=== PATIENT | male | born 1995 | race Caucasian/White ===

== ENCOUNTER 2018-11-17 13:50 | Emergency (ER) | payer SELFPAY ==
[2018-11-17] MEDS ORDERED: Ondansetron 4 MG/2 ML SDV IVPUSH ONE (14:39)
[2018-11-17] MEDS ORDERED: Ketorolac 30 MG/ML SDV IVPUSH ONE (14:39)
[2018-11-17] MEDS ORDERED: Sodium Chloride 0.9% 1,000 ML IV ONE (14:39)
--- NOTE | 2018-11-17 14:56 | EDM.PDOC ---
ED HPI GENERAL MEDICAL PROBLEM - General Chief Complaint: Fever Stated Complaint: SICK Time Seen by Provider: 11/17/18 14:29 Source of Information: Reports: Patient History Limitations: Reports: No Limitations - History of Present Illness INITIAL COMMENTS - FREE TEXT/NARRATIVE: Presents 24-48 hour history of vomiting 4, diarrhea many times, body aches, chills fever and sore throat. Denies abdominal pain or cough. He did not have a flu shot. He is otherwise healthy without chronic medical problems. Back Pain Score (Numeric/FACES): 8 - Related Data Allergies Allergy/AdvReac Type Severity Reaction Status Date / Time No Known Allergies Allergy Verified 11/17/18 14:24 Home Meds: Home Meds Amoxicillin [Amoxil 400 MG/5 ML Susp] 7 ml PO Q12HR 10 Days #100 ml 11/17/18 [Rx ] Cyclobenzaprine [Flexeril] 1 tab PO TID PRN #20 tab 11/17/18 [Rx] Past Medical History - Past Health History Medical/Surgical History: Denies Medical/Surgical History - Infectious Disease History Infectious Disease History: Reports: Chicken Pox Social & Family History - Family History Family Medical History: Noncontributory - Tobacco Use Smoking Status *Q: Never Smoker - Recreational Drug Use Recreational Drug Use: No ED ROS ENT - Review of Systems Review Of Systems: See Below Musculoskeletal: Reports: Back Pain (Long history of back pain but the patient states that a much worse back pain is what really brought him in today) ED EXAM, ENT - Physical Exam Exam: See Below Exam Limited By: No Limitations General Appearance: Alert, No Apparent Distress Ears: Normal External Exam, Normal TMs Nose: Normal Inspection Mouth/Throat: Pharyngeal Erythema, Throat Swelling Head: Atraumatic, Normocephalic Neck: Normal Inspection, Lymphadenopathy (L), Lymphadenopathy (R) Respiratory/Chest: No Respiratory Distress, Lungs Clear, Normal Breath Sounds Cardiovascular: Normal Peripheral Pulses, Regular Rate, Rhythm, No Murmur, Tachycardia GI/Abdominal: Soft Back: Paraspinal Tenderness (Lower thoracic and lumbar), Vertebral Tenderness ( Lower thoracic and lumbar). No: CVA Tenderness (L), CVA Tenderness (R) Extremities: Normal Inspection Neurological: Alert, Oriented, Normal Cognition, No Motor/Sensory Deficits Psychiatric: Normal Affect, Normal Mood Skin: Warm, Dry, Intact, Normal Color, No Rash Lymphatic: No Adenopathy Course - Vital Signs Last Recorded V/S: Last Vital Signs Temp 37.3 C 11/17/18 14:22 Pulse 114 H 11/17/18 14:22 Resp 18 11/17/18 14:22 BP 127/81 11/17/18 14:22 Pulse Ox 95 11/17/18 14:22 - Orders/Labs/Meds Orders: Active Orders 24 hr Category Date Time Status Lumbar Spine 2 or 3V [CR] Stat Exams 11/17/18 16:05 Ordered Labs: Laboratory Tests 11/17/18 Range/Units 14:58 WBC 13.03 H (4.0-11.0) K/uL RBC 5.36 (4.50-5.90) M/uL Hgb 15.9 (13.0-17.0) g/dL Hct 44.0 (38.0-50.0) % MCV 82.1 (80.0-98.0) fL MCH 29.7 (27.0-32.0) pg MCHC 36.1 (31.0-37.0) g/dL RDW Std Deviation 37.1 (28.0-62.0) fl RDW Coeff of Yasmin 13 (11.0-15.0) % Plt Count 199 (150-400) K/uL MPV 10.20 (7.40-12.00) fL Neut % (Auto) 76.8 (48.0-80.0) % Lymph % (Auto) 10.8 L (16.0-40.0) % Runnels % (Auto) 12.0 (0.0-15.0) % Eos % (Auto) 0.2 (0.0-7.0) % Baso % (Auto) 0.2 (0.0-1.5) % Neut # (Auto) 10.0 H (1.4-5.7) K/uL Lymph # (Auto) 1.4 (0.6-2.4) K/uL Runnels # (Auto) 1.6 H (0.0-0.8) K/uL Eos # (Auto) 0.0 (0.0-0.7) K/uL Baso # (Auto) 0.0 (0.0-0.1) K/uL Nucleated RBC % 0.0 /100WBC Nucleated RBCs # 0 K/uL Meds: Medications Discontinued Medications Generic Name Dose Route Start Last Admin Trade Name Anh PRN Reason Stop Dose Admin Cyclobenzaprine HCl 10 mg 11/17/18 16:07 11/17/18 16:19 Flexeril PO 11/17/18 16:08 10 mg ONETIME ONE Administration Fentanyl 50 mcg 11/17/18 16:07 11/17/18 16:20 Sublimaze IVPUSH 11/17/18 16:08 50 mcg ONETIME ONE Administration Sodium Chloride 1,000 mls @ 999 mls/hr 11/17/18 14:39 11/17/18 15:07 Normal Saline IV 11/17/18 15:39 999 mls/hr STAT ONE Administration Ceftriaxone Sodium/Dextrose 1 50 mls @ 100 mls/hr 11/17/18 15:33 11/17/18 16: 03 gm/ Premix IV 11/17/18 16:02 100 mls/hr ONETIME ONE Administration Ketorolac Tromethamine 30 mg 11/17/18 14:39 11/17/18 15:07 Toradol IVPUSH 11/17/18 14:40 30 mg ONETIME ONE Administration Ondansetron HCl 4 mg 11/17/18 14:39 11/17/18 15:07 Zofran IVPUSH 11/17/18 14:40 4 mg ONETIME ONE Administration Departure - Departure Time of Disposition: 15:46 Disposition: Home, Self-Care 01 Condition: Good Clinical Impression: Strep pharyngitis - Discharge Information *PRESCRIPTION DRUG MONITORING PROGRAM REVIEWED*: Not Applicable *COPY OF PRESCRIPTION DRUG MONITORING REPORT IN PATIENT ODIN: Not Applicable Prescriptions: Amoxicillin [Amoxil 400 MG/5 ML Susp] 7 ml PO Q12HR 10 Days #100 ml Referrals: PCP,Unknown [Primary Care Provider] - Forms: ED Department Discharge Additional Instructions: 1. Take your antibiotic twice daily 2. Flexeril 3 times daily as needed for back spasm 3. Adjust mouthwash gargle and swallow every 4 hours as needed for sore throat 4. Warm saltwater gargles every 2 hours as needed for sore throat 5. Follow-up in primary care 6. Drink large amounts of clear cool fluids and rest - My Orders Last 24 Hours: My Active Orders 11/17/18 16:05 Lumbar Spine 2 or 3V [CR] Stat - Assessment/Plan Last 24 Hours: My Active Orders 11/17/18 16:05 Lumbar Spine 2 or 3V [CR] Stat
[2018-11-17] MEDS ORDERED: cefTRIAXone 1 GM in Premix Bag 1 BAG IV ONE (15:33)
[2018-11-17] MEDS ORDERED: Cyclobenzaprine 10 MG Tab PO ONE (16:07)
[2018-11-17] MEDS ORDERED: fentaNYL 100 MCG/2 ML SDV IVPUSH ONE (16:07)
--- NOTE | 2018-11-17 17:29 | CR ---
INDICATION: back pain from laying in bed for a few days, no injury TECHNIQUE: Lumbar spine 3 views. COMPARISON: None. FINDINGS: Bones: Alignment is normal. No fractures or bone lesions. Joint spaces: Disc spaces are normal. Facet joints are normal. Soft tissues: Negative. IMPRESSION: Negative lumbar spine. Dictated by: Rigoberto Hernandez MD @ 11/17/2018 17:28:39 (Electronically Signed)
== END 2018-11-17 17:58 | disposition home or self-care (01) ==
LOC: MW.ED 13:50
DX: J02.0 Streptococcal pharyngitis (principal)
CPT/HCPCS: 36415; 72100; 85025; 87804; 87880; 96361; 96365; 96375; 99284; A9270; J0696; J1885; J2405; J3010; J7040